=== PATIENT | male | born 1985 | race Caucasian/White ===

== ENCOUNTER 2017-05-07 15:01 | Emergency (ER) | payer MEDICAID ==
[~2017-05-07] VITALS: Ht 152.4 cm; Wt 45.0 kg
[2017-05-07 15:06] VITALS: BP 122/72; PULSE 110; RESP 18; TEMP 99.2; O2SAT 95
[2017-05-07] MEDS ORDERED: MIDO10TA PO (15:55)
--- NOTE | 2017-05-07 16:44 | RADRPT ---
EXAM DATE/TIME: 05/07/2017 16:22 [facility] COMPARISON: No previous studies available for comparison. INDICATIONS : Short of breath. MEDICAL HISTORY : None. SURGICAL HISTORY : Neck surgery. ENCOUNTER: Initial ACUITY: 1 month PAIN SCORE: 0/10 LOCATION: Bilateral chest FINDINGS: A single view of the chest demonstrates the lungs to be symmetrically aerated without evidence of mas s, infiltrate or effusion except for questionable air space disease in the right lower lobe. The car diomediastinal contours are unremarkable. Osseous structures are intact. CONCLUSION: Normal examination except for questionable air space disease in the right lower lobe. Manoj Vidales MD on May 07, 2017 at 16:42 Board Certified Radiologist. This report was verified electronically.
--- NOTE | 2017-05-07 16:44 | RADRPT ---
EXAM DATE/TIME: 05/07/2017 16:23 [facility] COMPARISON: No previous studies available for comparison. INDICATIONS : Right shoulder pain after neck surgery. MEDICAL HISTORY : None. SURGICAL HISTORY : Neck surgery. ENCOUNTER: Initial ACUITY: 1 month PAIN SCORE: 8/10 LOCATION: Right shoulder. FINDINGS: Multiple view examination of the right shoulder demonstrates no evidence of fracture or dislocation. The glenohumeral and acromioclavicular joints are maintained. There is normal range of motion betwe en internal and external rotation. Bony mineralization is normal. CONCLUSION: Unremarkable examination of the right shoulder. Manoj Vidales MD on May 07, 2017 at 16:43 Board Certified Radiologist. This report was verified electronically.
[2017-05-07 16:58] LABS: AUTOMATED NEUTROPHIL # 6.9 TH/MM3 (1.8-7.7); BASOPHIL # 0.1 TH/MM3 (0-0.2); EOSINOPHIL # 0.1 TH/MM3 (0-0.4); EOSINOPHIL % 1.3 % (0.0-4.0); HEMATOCRIT 33.8 % (39.0-51.0); HEMO FLAGS DIFF FINAL; LYMPH % 15.5 % (9.0-44.0); LYMPHOCYTE # 1.5 TH/MM3 (1.0-4.8); MEAN CELL VOLUME 90.1 FL (80.0-100.0); MEAN CORPUSCULAR HEMOGLOBIN 28.7 PG (27.0-34.0); MEAN CORPUSCULAR HGB CONC 31.8 % (32.0-36.0); MONO % 8.4 % (0.0-8.0); NEUT % 73.8 % (16.0-70.0); PLATELET COUNT 360 TH/MM3 (150-450); RED BLOOD COUNT 3.75 MIL/MM3 (4.50-5.90); RED CELL DISTRIBUTION WIDTH 16.7 % (11.6-17.2); WHITE BLOOD COUNT 9.4 TH/MM3 (4.0-11.0)
[2017-05-07 17:01] LABS: ANION GAP 10 MEQ/L (5-15); AST (GOT) 20 U/L (15-37); BICARBONATE 28.5 MEQ/L (21.0-32.0); BLOOD UREA NITROGEN 22 MG/DL (7-18); CHLORIDE 102 MEQ/L (98-107); GLOMERULAR FILTRATION RATE 115 ML/MIN (>89); POTASSIUM 4.2 MEQ/L (3.5-5.1); SODIUM (NA) 140 MEQ/L (136-145)
[2017-05-07 17:02] LABS: ALT (GPT) 22 U/L (12-78)
[2017-05-07 17:04] LABS: ALKALINE PHOSPHATASE 102 U/L (45-117); TOTAL BILIRUBIN ADULT 0.3 MG/DL (0.2-1.0)
[2017-05-07] MEDS ORDERED: AMOX875T2 PO (17:44)
[2017-05-07] MEDS ORDERED: ALBU0.08 NEB (17:44)
[2017-05-07] MEDS ORDERED: RESP: ALBUTEROL 2.5 MG/IPRATROPIUM 0.5 MG NEB (SCH) INH (17:45)
[2017-05-07] MEDS ORDERED: methylPREDNISolone SOD SUCC 125 MG/2 ML VIAL IVP ONE (17:45)
[2017-05-07] MEDS ORDERED: cefTRIAXone INJ 1,000 MG in SODIUM CHLORIDE 0.9% INJ 100 ML IV ONE (17:45)
--- NOTE | 2017-05-07 17:45 | PD ---
HPI Chief Complaint: Respiratory Symptoms Time Seen by Provider: 15:55 Travel History International Travel<30 days: No Contact w/Intl Traveler<30days: No Traveled to known affect area: No History of Present Illness HPI Patient is a 31-year-old male presenting to the emergency department for evaluation of possible aspiration. Mom states that he has been coughing, short of breath and coarse sounding. There is been no fevers, chills, activity changes. Patient currently receives tube feedings every 4 hours. He recently was discharged from proximal rehabilitation 3 weeks ago after a cervical spine fusion in February. Patient has a history of Down syndrome. He developed a right- sided weakness after his initial cervical spine fusion in August 2016, this is why he currently has a feeding tube. The dysphasia started after the initial surgery. 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 SKIN: Warm and dry. HEAD: Atraumatic. Normocephalic. EYES: Pupils equal and round. No scleral icterus. No injection or drainage. ENT: No nasal bleeding or discharge. Mucous membranes pink and moist. NECK: Trachea midline. No JVD. Cervical collar on from surgery. CARDIOVASCULAR: Regular rate and rhythm. RESPIRATORY: No accessory muscle use. Coarse breath sounds in right lower lobe GASTROINTESTINAL: Abdomen soft, non-tender, nondistended. Hepatic and splenic margins not palpable. G-tube positive bowel sounds, no rebound, no guarding. MUSCULOSKELETAL: Extremities without clubbing, cyanosis, or edema. No obvious deformities. NEUROLOGICAL: Awake and alert. No obvious cranial nerve deficits. Motor grossly within normal limits. Five out of 5 muscle strength in the arms and legs on the left, 3/5 on the right. Normal speech. PSYCHIATRIC: Appropriate mood and affect; insight and judgment normal. Data Data Last Documented VS Vital Signs Date Time Temp Pulse Resp B/P Pulse Ox O2 Delivery O2 Flow Rate FiO2 05/07/17 15:50 16 Room Air 05/07/17 15:06 99.2 110 122/72 95 Orders Chest, Single Ap (05/07/17 ) Shoulder, Complete (>2vws) (05/07/17 ) Complete Blood Count With Diff (05/07/17 15:46) Comprehensive Metabolic Panel (05/07/17 15:46) Lactic Acid Sepsis Protocol (05/07/17 15:46) Ecg Monitoring (05/07/17 15:46) Iv Access Insert/Monitor (05/07/17 15:46) Oximetry (05/07/17 15:46) Labs Laboratory Tests Test 05/07/17 05/07/17 16:00 16:05 White Blood Count 9.4 TH/MM3 Red Blood Count 3.75 MIL/MM3 Hemoglobin 10.7 GM/DL Hematocrit 33.8 % Mean Corpuscular Volume 90.1 FL Mean Corpuscular Hemoglobin 28.7 PG Mean Corpuscular Hemoglobin 31.8 % Concent Red Cell Distribution Width 16.7 % Platelet Count 360 TH/MM3 Mean Platelet Volume 10.0 FL Neutrophils (%) (Auto) 73.8 % Lymphocytes (%) (Auto) 15.5 % Monocytes (%) (Auto) 8.4 % Eosinophils (%) (Auto) 1.3 % Basophils (%) (Auto) 1.0 % Neutrophils # (Auto) 6.9 TH/MM3 Lymphocytes # (Auto) 1.5 TH/MM3 Monocytes # (Auto) 0.8 TH/MM3 Eosinophils # (Auto) 0.1 TH/MM3 Basophils # (Auto) 0.1 TH/MM3 CBC Comment DIFF FINAL Differential Comment Sodium Level 140 MEQ/L Potassium Level 4.2 MEQ/L Chloride Level 102 MEQ/L Carbon Dioxide Level 28.5 MEQ/L Anion Gap 10 MEQ/L Blood Urea Nitrogen 22 MG/DL Creatinine 0.78 MG/DL Estimat Glomerular Filtration 115 ML/MIN Rate Random Glucose 95 MG/DL Calcium Level 9.1 MG/DL Total Bilirubin 0.3 MG/DL Aspartate Amino Transf 20 U/L (AST/SGOT) Alanine Aminotransferase 22 U/L (ALT/SGPT) Alkaline Phosphatase 102 U/L Total Protein 8.5 GM/DL Albumin 3.0 GM/DL Lactic Acid Level 1.5 mmol/L MDM Medical Decision Making Medical Screen Exam Complete: Yes Emergency Medical Condition: Yes Interpretation(s) Laboratory Tests Test 05/07/17 05/07/17 16:00 16:05 White Blood Count 9.4 TH/MM3 Red Blood Count 3.75 MIL/MM3 Hemoglobin 10.7 GM/DL Hematocrit 33.8 % Mean Corpuscular Volume 90.1 FL Mean Corpuscular Hemoglobin 28.7 PG Mean Corpuscular Hemoglobin 31.8 % Concent Red Cell Distribution Width 16.7 % Platelet Count 360 TH/MM3 Mean Platelet Volume 10.0 FL Neutrophils (%) (Auto) 73.8 % Lymphocytes (%) (Auto) 15.5 % Monocytes (%) (Auto) 8.4 % Eosinophils (%) (Auto) 1.3 % Basophils (%) (Auto) 1.0 % Neutrophils # (Auto) 6.9 TH/MM3 Lymphocytes # (Auto) 1.5 TH/MM3 Monocytes # (Auto) 0.8 TH/MM3 Eosinophils # (Auto) 0.1 TH/MM3 Basophils # (Auto) 0.1 TH/MM3 CBC Comment DIFF FINAL Differential Comment Sodium Level 140 MEQ/L Potassium Level 4.2 MEQ/L Chloride Level 102 MEQ/L Carbon Dioxide Level 28.5 MEQ/L Anion Gap 10 MEQ/L Blood Urea Nitrogen 22 MG/DL Creatinine 0.78 MG/DL Estimat Glomerular Filtration 115 ML/MIN Rate Random Glucose 95 MG/DL Calcium Level 9.1 MG/DL Total Bilirubin 0.3 MG/DL Aspartate Amino Transf 20 U/L (AST/SGOT) Alanine Aminotransferase 22 U/L (ALT/SGPT) Alkaline Phosphatase 102 U/L Total Protein 8.5 GM/DL Albumin 3.0 GM/DL Lactic Acid Level 1.5 mmol/L Last Impressions Shoulder X-Ray 05/07/17 0000 Signed Impressions: Service Date/Time: Sunday, May 07, 2017 16:23 - CONCLUSION: Unremarkable examination of the right shoulder. Manoj Vidales MD Chest X-Ray 05/07/17 0000 Signed Impressions: Service Date/Time: Sunday, May 07, 2017 16:22 - CONCLUSION: Normal examination except for questionable air space disease in the right lower lobe. Manoj Vidales MD Vital Signs Date Time Temp Pulse Resp B/P Pulse Ox O2 Delivery O2 Flow Rate FiO2 05/07/17 15:50 16 Room Air 05/07/17 15:06 99.2 110 18 122/72 95 Room Air Differential Diagnosis Pneumonia versus bronchitis versus viral syndrome versus metabolic abnormality versus other Narrative Course Patient is a 31-year-old male with a history of Down syndrome presenting with his mother for evaluation of possible aspiration. She felt that he could've aspirated due to coughing, wheezing and shortness of breath. Patient has residual right-sided weakness after cervical spine surgery in August 2016. This subsequently caused issues with swallowing resulting in G-tube placement. Questionable airspace disease in the right lower lobe, this correlates with coarse breath sounds noted on exam. Mother was concerned that the right shoulder was dislocated, right shoulder x- ray is negative for fracture or dislocation. CBC with a normal white blood cell count, mild left shift noted. Atraumatic acid 1.5, chemistries otherwise unremarkable. Patient will be given Solu-Medrol, DuoNeb, Rocephin in the emergency department. He will be discharged home on antibiotics with close follow-up with his primary doctor. Mom is given strict return precautions. She has a nebulizer machine at home, she was advised to utilize this as prescribed. She verbalized understanding of instructions. Patient is stable for discharge. Diagnosis Primary Impression: Pneumonia Qualified Code: J18.1 - Pneumonia of right lower lobe due to infectious organism Referrals: Primary Care Physician 2 days Patient Instructions: Aspiration Pneumonia (DC), Bacterial Pneumonia (ED), General Instructions Additional Instructions: Follow-up with your primary doctor Complete full course of antibiotics as prescribed Use nebulizers every 4 hours and as needed Return to emergency department immediately for any new or worsening symptoms Med/Other Pt SpecificInfo: Prescription(s) given Scripts Albuterol Neb 2.5 Mg/3 Ml Neb2.5 Mg NEB Q4HR NEB PRN (SHORTNESS OF BREATH) #60 NEBULE Ref 0 Prov:Rachel Hooper 05/07/17 Amoxicillin-Clavulanate 875-125 mg [id number] Mg PO BID #20 TAB Ref 0 not for use in CrCl <30 mL/minute Prov:Rachel Hooper 05/07/17 Disposition: 01 DISCHARGE HOME Condition: Stable Rachel Hooper May 07, 2017 17:45
== END 2017-05-07 18:09 | disposition home or self-care (01) ==
LOC: NEPC 15:01
DX: J18.1 Lobar pneumonia, unspecified organism (principal); Q90.9 Down syndrome, unspecified; M62.81 Muscle weakness (generalized); Z79.899 Other long term (current) drug therapy
CPT/HCPCS: 71010; 73030; 80053; 83605; 85025; 94640; 94664; 96374; 96375; 99284; J0696; J2930